=== PATIENT | male | born 1985 | race Caucasian/White ===

== ENCOUNTER 2020-03-16 18:00 | Emergency (ER) | payer OTHER ==
[~2020-03-16] VITALS: Ht 182.9 cm; Wt 86.2 kg
[2020-03-16] MEDS ORDERED: KEFLEX500 M1 PO (19:17)
[2020-03-16] MEDS ORDERED: IBUPROFEN 800800 M1 PO (19:17)
[2020-03-16 19:30] VITALS: BP 141/95
== END 2020-03-16 19:31 | disposition home or self-care (01) ==
LOC: M.ERS 18:00
DX: S61.012A Laceration without foreign body of left thumb without damage to nail, initial encounter (principal); W45.0XXA Nail entering through skin, initial encounter; Y93.89 Activity, other specified; Y92.89 Other specified places as the place of occurrence of the external cause; Y99.8 Other external cause status